=== PATIENT | female | born 1985 ===

== ENCOUNTER 2018-05-25 07:31 | Outpatient (CLI) | payer OTHER ==
[~2018-05-25 07:31] MED LIST: HUMALOG KW100 UNIT/1 SQ; HUMALOG MIX 75/10 ML SQ; HUMALOG100 U/ML SQ; HUMULIN N100 U/ML SQ; PERCOCET 5/3251 TAB PO; [UNRECOGNIZED DRUG - OTHER] SQ
== END 2018-05-25 07:34 | disposition home or self-care (01) ==
LOC: SONOGRAMA 07:31
DX: E04.1 Nontoxic single thyroid nodule (principal)